=== PATIENT | male | born 1940 | race Caucasian/White ===

== ENCOUNTER 2020-05-10 08:56 | Outpatient (CLI) | payer MEDICARE ==
[2020-05-10 10:55] LABS: Estimated GFR-MDRD - POC Greater than 90
--- NOTE | 2020-05-10 11:31 | MRI ---
MRI LUMBAR SPINE WITH AND WITHOUT CONTRAST: DATE: 05/10/2020 HISTORY: 80-year-old male with postlaminectomy syndrome M 96.1 Chronic low back pain Intervertebral disc disorder with radiculopathy, lumbar region M 51.16 COMPARISON: None TECHNIQUE: Multiple sequences obtained in axial and sagittal planes, pre and post IV injection of gadolinium-bas ed contrast agent. FINDINGS: For the purposes of this report, it will be assumed that there are 5 lumbar-type vertebrae. Vertebral body heights are maintained. There is at least a mild lateral curvature, convexity to the left. This results in asymmetrically gre ater degree of right-sided degenerative disc disease at L2-3 and L3-4, and asymmetry greater degree of degenerative disc disease on the left at L4-5. There are bilateral pedicle screws at L4, L5, and S1. The hardware causes magnetic susceptibility art ifact, limiting the accuracy of the evaluation of the neural foramina at those levels, and limiting the assessment for abnormal enhancement.. Axial images are degraded by patient motion. Conus medullaris terminates at L1. T12-L1:Moderate disc space narrowing with endplate irregularity and Modic type I endplate marrow ho ges. Combination of prominent diffuse disc bulge and slight retrolisthesis of T12 on L1 results in moderate central spinal canal stenosis and moderate bilateral neural foraminal stenosis. L1-2:Mild to moderate disc space narrowing. Combination of prominent diffuse disc bulge and slight re trolisthesis of L1 on L2 results in mild to moderate central spinal canal stenosis and mild to moderate bilateral neural foraminal stenosis. L2-3:Moderate right-sided disc space narrowing along the concavity of the lateral curvature. Diffuse disc bulge and degenerative retrolisthesis of L2 on L3. Mild to moderate central spinal canal stenosis. Moderate to severe bilateral neural foraminal stenosis, right worse than left.. L3-4:Moderate disc space narrowing. Retrolisthesis of L3 on L4 along with mild disc bulge results in moderate to severe bilateral neural foraminal stenosis. Mild to moderate central spinal canal stenosis. L4-5:Mild to moderate disc space narrowing. Mild disc bulge. No high-grade central spinal canal steno sis. Moderate bilateral neural foraminal stenosis. Moderate bilateral ligamentum flavum thickening. L5-S1:Bilateral L5 pars interarticularis defects result in grade 1 or 2 anterolisthesis of L5 on S1. Moderate disc space narrowing. Diffuse disc bulge. Mild or moderate right neural foraminal stenosis. Moderate or severe left neural foraminal stenosis. Mild to moderate central spinal canal st enosis. Lateral recess stenosis bilaterally. Questionable left hemilaminectomy defect. IMPRESSION: 1) moderate to severe lumbar spondylosis, with multilevel high-grade degenerative disc disease. 2) grade 1 spondylolisthesis at L5-S1 due to bilateral L5 spondylolysis. 3) bilateral pedicle screws at L4, L5, and S1. 4) multilevel high-grade bilateral neural foraminal stenosis.
--- NOTE | 2020-05-10 11:55 | RAD ---
Exam: 4 views lumbar spine HISTORY: Status post laminectomy syndrome. FINDINGS: Lateral neutral, lateral flexion and lateral extension views are submitted with patient in the uprigh t position. Five lumbar-type vertebra. Lumbar spine vertebral body height is maintained. No fracture. Moderate to severe degenerative disc disease with loss of disc space height, vacuum disc phenomenon, osteophyte formation at L2-L3. Moderate degenerative disc disease at the thoracolumbar junction. Bilateral transpedicular screws at L4, L5 and S1. No perihardware lucency. Spondylolisthesis: L3-L4: Neutral 4.4 mm of retrolisthesis Flexion 4.5 mm of retrolisthesis Extension 6 mm of retrolisthesis L5-S1: Neutral 9.8 mm of anterolisthesis Flexion 15 mm of anterolisthesis Extension 9.8 mm of anterolisthesis IMPRESSION: 1. Lumbar fusion from L4 through S1. No perihardware lucency. 2. Anterolisthesis of L5 upon S1 and retrolisthesis of L3 upon L4 as described above. Transcribed Date/Time: 05/10/2020 1:19 PM
[2020-05-10] MEDS ORDERED: Magnevist 469MG/ML 20 ML VIAL ONE (15:20)
== END 2020-05-10 08:57 | disposition home or self-care (01) ==
LOC: SCSMRI 08:56 → MRI 08:57
PROVIDERS: ATTEND Family Medicine
DX: M51.16 Intervertebral disc disorders with radiculopathy, lumbar region (principal); M96.1 Postlaminectomy syndrome, not elsewhere classified; M43.16 Spondylolisthesis, lumbar region; M43.17 Spondylolisthesis, lumbosacral region; M47.26 Other spondylosis with radiculopathy, lumbar region; M48.061 Spinal stenosis, lumbar region without neurogenic claudication; Z98.1 Arthrodesis status
CPT/HCPCS: 72120; 72158; 82565; A9579

== ENCOUNTER 2020-08-11 12:42 | Outpatient (CLI) | payer MEDICARE | END 2020-08-11 12:43 | disposition home or self-care (01) | LOC: RAD 12:42 | DX: Z11.1 Encounter for screening for respiratory tuberculosis (principal) | CPT/HCPCS: 71046 ==